=== PATIENT | male | born 1970 | race American Indian/Alaskan Native ===

== ENCOUNTER 2017-01-26 05:06 | Emergency (ER) | payer MEDICAID | END 2017-01-26 05:24 | disposition left against medical advice (07) | LOC: C.ER 05:06 | DX: Z02.89 Encounter for other administrative examinations (principal); Z00.00 Encounter for general adult medical examination without abnormal findings ==

== ENCOUNTER 2017-07-14 19:56 | Emergency (ER) | payer MEDICAID ==
[2017-07-14 19:57] VITALS: BMI 19.5
[2017-07-14 20:12] VITALS: TEMP 98
--- NOTE | 2017-07-14 20:39 | C.PDOC ---
History Of Present Illness 46 year old male is brought to ED by EMS after being found on street appearing to be under the influence of drugs. Family members present on scene states that patient was drinking alcohol and using PCP. Pt was not wiling to provide any information initially. Time Seen by Provider: 07/14/17 20:05 Chief Complaint (Nursing): Substance Abuse History Per: Patient, Family History/Exam Limitations: no limitations Onset/Duration Of Symptoms: Gradual Current Symptoms Are (Timing): Still Present Modifying Factor(s): Alcohol, Other (PCP) Associated Symptoms: denies: Suicidal Thoughts, Suicidal Plan Additional History Per: EMS, Family Past Medical History Reviewed: Historical Data, Nursing Documentation, Vital Signs Vital Signs: Last Vital Signs Temp 98 F 07/14/17 20:05 Pulse 82 07/14/17 21:30 Resp 18 07/14/17 21:30 BP 169/122 H 07/14/17 21:30 Pulse Ox 96 07/14/17 21:30 - Medical History PMH: Asthma, Bronchitis, Fractures (Mandible & foot), HTN, Seizures Surgical History: Appendectomy Family History: States: Hypertension - Social History Hx Alcohol Use: Yes Hx Substance Use: Yes (PCP) - Immunization History Hx Tetanus Toxoid Vaccination: No Hx Influenza Vaccination: No Hx Pneumococcal Vaccination: No Review Of Systems Except As Marked, All Systems Reviewed And Found Negative. Constitutional: Negative for: Fever, Chills Cardiovascular: Negative for: Chest Pain Respiratory: Negative for: Shortness of Breath Gastrointestinal: Negative for: Nausea, Vomiting, Abdominal Pain Psych: Negative for: Suicidal ideation Physical Exam - Physical Exam Appears: Non-toxic, No Acute Distress, Other (EtOH on breath) Skin: Warm, Dry Head: Atraumatic, Normacephalic Eye(s): bilateral: EOMI, Other (horizontal nystagmus) Oral Mucosa: Moist Neck: Normal ROM, Supple Cardiovascular: Rhythm Regular (tachycardic), No Murmur Respiratory: Normal Breath Sounds, No Rales, No Rhonchi, No Wheezing Gastrointestinal/Abdominal: Soft, No Tenderness Extremity: Normal ROM, No Deformity Neurological/Psych: Oriented x3 (awake, alert) ED Course And Treatment O2 Sat by Pulse Oximetry: 97 (RA) Pulse Ox Interpretation: Normal Progress Note: Urine drug screen, Acucheck was ordered and reviewed. On re-eval , pt is resting comfortably, no acute distress. Disposition Counseled Patient/Family Regarding: Studies Performed, Diagnosis, Need For Followup - Disposition Referrals: [facility] at [facility] [Outside] Disposition: HOME/ ROUTINE Disposition Time: 22:00 Condition: STABLE Additional Instructions: FOLLOW UP WITH YOUR DOCTOR/CLINIC IN 1-2 DAYS STOP USING DRUGS RETURN TO ER IF YOU HAVE ANY CONCERNING SYMPTOMS Instructions: Polysubstance Abuse (DC) Forms: [employer] (Swedish) Print Language: PALAUAN - POA Present On Arrival: None - Clinical Impression Clinical Impression: Substance abuse - Scribe Statement The provider has reviewed the documentation as recorded by the Scribe Marlo Alvarez All medical record entries made by the Scribe were at my direction and personally dictated by me. I have reviewed the chart and agree that the record accurately reflects my personal performance of the history, physical exam, medical decision making, and the department course for this patient. I have also personally directed, reviewed, and agree with the discharge instructions and disposition.
[2017-07-14 21:48] VITALS: BP 169/122; PULSE 82; RESP 18
[2017-07-14 22:11] VITALS: O2SAT 97
== END 2017-07-14 22:08 | disposition home or self-care (01) ==
LOC: C.ER 19:56
DX: F19.10 Other psychoactive substance abuse, uncomplicated (principal); I10 Essential (primary) hypertension